=== PATIENT | female | born 1995 | race Caucasian/White ===

== ENCOUNTER 2020-03-31 05:45 | Inpatient (IN) ==
[2020-03-31] MEDS ORDERED: ONDANSETRON 4 MG/2 ML VIAL IV PRN ×2 (05:55→09:26)
[2020-03-31] MEDS ORDERED: FAMOTIDINE 20 MG/2 ML VIAL IV ONE (05:59)
[2020-03-31] MEDS ORDERED: CITRIC ACID/SODIUM CITRATE 30 ML UDCUP PO ONE (05:59)
[2020-03-31] MEDS ORDERED: ceFAZolin 3,000 MG in SYRINGE 1 EACH IV ONE (06:00)
[2020-03-31] MEDS: LACTATED RINGERS 1,000 ML IV PRN ×2 (06:33→07:49)
[2020-03-31 07:05] LABS: INR 0.9; Partial Thromboplastin Time 27.4 SECS (23.9-33.8)
[2020-03-31 07:06] LABS: Basophils % 0.2 % (0.0-0.8); Eosinophils # 0.1 10*3/uL (0.0-0.87); Hematocrit 32.9 VOL% (35.7-47.0); Hemoglobin 10.7 GM/DL (12.0-16.0); Immature Granulocytes % 1.7 %; Immature Granulocytes Absolute 0.21 #; Lymphocytes # 2.1 10*3/uL (1.4-4.0); Lymphocytes % 16.9 % (21.3-54.2); Mean Corpuscular HGB Conc 32.5 GM/DL (32-36); Mean Platelet Volume 10.3 FL (9.6-12.0); Monocytes % 6.4 % (1.7-12.7); Neutrophils % 73.8 % (38.7-73.9); Platelet Count 224 T/CUMM (130-400); Red Blood Count 3.74 MC/CUMM (3.8-5.5); Red Cell Distribution Width 13.5 % (9.3-17.3); White Blood Count 12.6 T/CUMM (4-12)
[2020-03-31 07:11] LABS: Bilirubin,Direct < 0.100 MG/DL (0.0-0.20); Uric Acid 5.1 MG/DL (2.6-6.0)
[2020-03-31 07:14] LABS: Alanine Aminotransferase 71 U/L (13-56); Albumin 2.7 G/DL (3.4-5.0); Alkaline Phosphatase 318 U/L (45-117); Aspartate Amino Transferase 30 U/L (0-37); Bilirubin,Total < 0.39 MG/DL (0.2-1.0); Blood Urea Nitrogen 11 MG/DL (7-18); Calcium 9.2 MG/DL (8.5-10.1); Estimated Glom Filtration Rate 174 ML/MIN; Glucose 88 MG/DL (74-106); Osmolality,Calculated 270.8 MOS/KG (273-304); Total Protein 7.1 G/DL (6.4-8.3)
[2020-03-31] MEDS ORDERED: miSOPROStoL 200 MCG TABLET ONE (07:42)
[2020-03-31] MEDS ORDERED: CARBOPROST TROMETHAMINE 250 MCG/ML AMP IM ONE (07:42)
[2020-03-31] MEDS ORDERED: OXYTOCIN/LR 20 UNIT/1,000 ML BAG IV ONE ×2 (07:42→09:26)
[2020-03-31 09:12] LABS: Cord Arterial Blood HCO3 22.4 MMOL/L
[2020-03-31 09:13] LABS: Cord Venous Blood HCO3 23.2 MMOL/L; Cord Venous Blood PCO2 40.6 MMHG; Cord Venous Blood PO2 40.7 MMHG
[2020-03-31 09:24] LABS: Apearance,Urine CLEAR (Clear); Bilirubin,Urine Negative (Negative); Blood, Urine Negative (Negative); Glucose,Urine (UA) Negative (Negative); Ketones,Urine Negative (Negative); Mucus,Urine Occasional /LPF (Occasional); Nitrite,Urine Negative (Negative); Protein,Urine Negative; RBC,Urine <1 /HPF (0-4); Squamous Epithelial Cell,Urine Occasional /HPF (0-10); Urine Color Yellow (Yellow); Urine Specific Gravity 1.028 (1.001-1.035); Urine Urobilinogen < 2.0 EU/DL (0.2-1.0); WBC,Urine <1 /HPF (0-6)
[2020-03-31] MEDS ORDERED: ACETAMINOPHEN 325 MG TABLET PO PRN (09:26)
[2020-03-31] MEDS ORDERED: DIPH/TET/ACEL PERT BOOSTER VACCINE 0.5 ML VIAL IM ONE (09:26)
[2020-03-31] MEDS ORDERED: WITCH HAZEL PADS 100/JAR TOP PRN (09:26)
[2020-03-31] MEDS ORDERED: MEASLES/MUMPS/RUBELLA VACCINE 0.5 ML VIAL SUBCUT ONE ×2 (09:26→10:00)
[2020-03-31] MEDS ORDERED: HYDROCORTISONE 2.5% RECTAL CREAM 30 GM TUBE TOP PRN (09:26)
[2020-03-31] MEDS ORDERED: BENZOCAINE 20%/MENTHOL 0.5% SPRAY 56 GM CAN TOP PRN (09:26)
[2020-03-31] MEDS ORDERED: LANOLIN 50% CREAM 0.3 OZ TUBE TOP PRN (09:26)
[2020-03-31] MEDS ORDERED: RHO(D) IMMUNE GLOBULIN 300 MCG SYRINGE IM ONE (09:26)
[2020-03-31] MEDS ORDERED: BISACODYL 10 MG SUPP RECTAL PRN (09:26)
[2020-03-31] MEDS ORDERED: PHENYLEPHRINE 1 MG/10 ML SYRINGE IV ONE (09:34)
[2020-03-31] MEDS ORDERED: KETOROLAC 30 MG/1 ML VIAL ONE (09:35)
[2020-03-31] MEDS ORDERED: MORPHINE 10 MG/10 ML VIAL ONE (09:35)
[2020-03-31] MEDS ORDERED: fentaNYL 100 MCG/2 ML VIAL ONE (09:35)
[2020-03-31] MEDS ORDERED: MIDAZOLAM 2 MG/2 ML VIAL ONE (09:35)
[2020-03-31] MEDS ORDERED: BUPIVACAINE SPINAL 0.75% 2 ML AMP SPINAL ONE (09:36)
[2020-03-31] MEDS: LABETALOL 200 MG TABLET PO SCH ×2 (12:30→23:47)
[2020-03-31] MEDS: ACETAMINOPHEN 500 MG TABLET PO SCH ×3 (12:31→23:51)
[2020-03-31] MEDS ORDERED: diphenhydrAMINE 50 MG/1 ML VIAL IV PRN (13:37)
[2020-03-31] MEDS: ceFAZolin 1,000 MG in SYRINGE 1 EACH IV SCH ×2 (16:05→23:06)
[2020-03-31] MEDS ORDERED: KETOROLAC 30 MG/1 ML VIAL IV SCH (17:30)
[2020-03-31] MEDS ORDERED: HydrOXYzine PAMOATE 25 MG CAPSULE PO PRN (20:39)
[2020-03-31] MEDS: DOCUSATE SODIUM 100 MG CAPSULE PO SCH (21:05)
[2020-03-31] MEDS: oxyCODONE/ACETAMINOPHEN 5-325 MG TABLET PO PRN (23:48)
[2020-04-01] MEDS ORDERED: KETOROLAC 30 MG/1 ML VIAL IV SCH ×3 (02:00→12:30)
[2020-04-01 05:39] LABS: Basophils % 0.2 % (0.0-0.8); Eosinophils # 0.2 10*3/uL (0.0-0.87); Eosinophils % 1.7 % (0.00-10.9); Hematocrit 29.3 VOL% (35.7-47.0); Hemoglobin 9.4 GM/DL (12.0-16.0); Immature Granulocytes % 1.2 %; Immature Granulocytes Absolute 0.17 #; Lymphocytes # 2.4 10*3/uL (1.4-4.0); Lymphocytes % 17.2 % (21.3-54.2); Mean Corpuscular HGB Conc 32.1 GM/DL (32-36); Mean Corpuscular Volume 89.6 FL (87-102); Mean Platelet Volume 10.7 FL (9.6-12.0); Monocytes % 6.4 % (1.7-12.7); Neutrophils % 73.3 % (38.7-73.9); Platelet Count 245 T/CUMM (130-400); Red Blood Count 3.27 MC/CUMM (3.8-5.5); Red Cell Distribution Width 13.5 % (9.3-17.3); White Blood Count 13.9 T/CUMM (4-12)
[2020-04-01] MEDS: ACETAMINOPHEN 500 MG TABLET PO SCH ×2 (06:01→12:10)
[2020-04-01] MEDS: LABETALOL 200 MG TABLET PO SCH ×2 (07:55→21:11)
[2020-04-01] MEDS: DOCUSATE SODIUM 100 MG CAPSULE PO SCH ×2 (07:55→21:10)
[2020-04-01] MEDS: oxyCODONE/ACETAMINOPHEN 5-325 MG TABLET PO PRN ×3 (07:55→23:24)
[2020-04-01] MEDS: IBUPROFEN 800 MG TABLET PO PRN ×2 (07:55→19:50)
[2020-04-01] MEDS: ceFAZolin 1,000 MG in SYRINGE 1 EACH IV SCH ×2 (09:30→16:39)
[2020-04-01] MEDS ORDERED: diphenhydrAMINE 2% CREAM 28 GM TUBE TOP PRN (22:54)
[2020-04-02] MEDS: oxyCODONE/ACETAMINOPHEN 5-325 MG TABLET PO PRN ×3 (06:48→18:55)
[2020-04-02] MEDS: IBUPROFEN 800 MG TABLET PO PRN ×3 (06:48→18:54)
[2020-04-02] MEDS: BISACODYL 5 MG TABLET PO SCH ×2 (09:40→21:00)
[2020-04-02] MEDS: LABETALOL 200 MG TABLET PO SCH ×2 (09:41→20:35)
[2020-04-02] MEDS: DOCUSATE SODIUM 100 MG CAPSULE PO SCH ×2 (09:41→20:35)
[2020-04-02] MEDS: SIMETHICONE CHEW 80 MG TABLET PO PRN ×2 (09:41→13:04)
[2020-04-02] MEDS ORDERED: BISACODYL 5 MG TABLET PO SCH (21:00)
[2020-04-03] MEDS: oxyCODONE/ACETAMINOPHEN 5-325 MG TABLET PO PRN ×2 (00:39→07:52)
[2020-04-03] MEDS: IBUPROFEN 800 MG TABLET PO PRN (03:13)
[2020-04-03] MEDS: LABETALOL 200 MG TABLET PO SCH ×2 (07:51→10:13)
[2020-04-03] MEDS: DOCUSATE SODIUM 100 MG CAPSULE PO SCH ×2 (07:52→10:13)
[2020-04-03 09:15] VITALS: BP 146/89
[2020-04-03] MEDS: BISACODYL 5 MG TABLET PO SCH (10:13)
== END 2020-04-03 14:00 | disposition home or self-care (01) | DRG 785 ==
LOC: N.LD 05:45 → N.OB 13:17
PROVIDERS: ADMIT Specialist; ATTEND Specialist